=== PATIENT | male | born 1975 | race African-American/Black ===

== ENCOUNTER 2020-04-15 00:57 | Emergency (ER) | payer MEDICAID ==
[~2020-04-15] VITALS: Ht 190.5 cm; Wt 122.5 kg
[2020-04-15] VITALS (7 sets, daily range): BP systolic 122–142; BP diastolic 76–84
[2020-04-15] MEDS ORDERED: DiphenhydrAMINE 50mg/ml Inj ONE (01:07)
[2020-04-15] MEDS ORDERED: Haloperidol 5mg/ml Inj ONE (01:07)
[2020-04-15] MEDS ORDERED: LORazepam Inj 2mg/ml 1ml ONE (01:07)
[2020-04-15] MEDS ORDERED: DiphenhydrAMINE 50mg/ml Inj IM ONE (01:15)
[2020-04-15] MEDS ORDERED: Haloperidol 5mg/ml Inj IM ONE (01:15)
[2020-04-15] MEDS ORDERED: LORazepam Inj 2mg/ml 1ml IM ONE (01:15)
[2020-04-15 02:19] LABS: BASOPHILS % (AUTO) 3.4 % (0.0-2.0); EOSINOPHILS % (AUTO) 0.1 % (0.0-3.0); HEMATOCRIT 36.8 % (42.0-52.0); HEMOGLOBIN 12.4 G/DL (14.2-18.0); LYMPHOCYTES % (AUTO) 8.8 % (20.0-45.0); MEAN CORPUSCULAR VOLUME 89 FL (80-99); MONOCYTES % (AUTO) 8.8 % (1.0-10.0); NEUTROPHILS % (AUTO) 78.9 % (45.0-75.0); PLATELET COUNT 199 K/UL (150-450); RED BLOOD COUNT 4.13 M/UL (4.70-6.10); RED CELL DISTRIBUTION WIDTH 13.2 % (11.6-14.8); WHITE BLOOD COUNT 10.6 K/UL (4.8-10.8)
--- NOTE | 2020-04-15 02:35 | Emergency Room Report ---
History of Present Illness General Chief Complaint: Behavioral Complaint Source: Patient Present Illness HPI 44-year-old -[place] male brought in by PD on 5150 hold for suicidal ideation. According to PD, patient verbalized his desire to kill himself by running into traffic. Patient is uncooperative with examination. He is denying any previous psychiatric history, however he appears to be reacting with internal stimuli. He is severely agitated. He does not endorse any drug use or ingestion. Denies pain at this time. He is asking for a cup of water to drink The patient's symptoms were gradual onset, severity was moderate, duration since unknown amount of time. Quality: Psychotic Past medical history: Psychosis Past surgical history: Unable to obtain Smoking: Unable to obtain Alcohol use: Unable to obtain Drug use: Unable to obtain Review of systems: CONST: No fevers or chills, No night sweats PULMONARY: No productive cough, No shortness of breath CARDIAC: No chest pain, No palpitations GI: No vomiting, No diarrhea , No melena_or_BRBPR : No dysuria, No hematuria, No discharge NEURO: No new_focal_weakness_or_numbness, No confusion, No vision changes 14 point Review of Systems is otherwise negative except per HPI Physical Exam: GENERAL: Awake_alert_ nontoxic, no acute distress Spo2 98% on RA -normal EYES: Extraocular muscles are intact. Conjunctivae clear. Lids without swelling. No nystagmus. No signs of head trauma. ENT: External nose and ear normal_in_appearance. Oropharynx clear. Head_atraumatic, Moist_oral_mucosa NECK: No JVD. No meningismus. No thyromegaly. Supple. Trachea midline RESP: Normal respiratory effort. Symmetric rise. No stridor. Clear_to_auscultation_No_rales_No_wheezes CARDIAC: Tachycardic and regular rhytm. No_significant pedal edema. ABDOMEN: Soft. Nondistended. Nontender_No_rebound_or_guarding. MSK: Normal muscle tone, without rigidity. Extremities without asymmetric deformity or swelling. SKIN: Warm and dry. No visible cyanosis or pallor NEUROLOGIC: Alert, oriented x3. Motor_and_sensation_grossly_intact. No truncal ataxia. Gait_normal Psych: Positive suicidal ideation. Positive auditory and visual hallucination. - COORDINATION OF CARE Case was discussed with: Patient , Patient's Physician Any labs and imaging that were ordered were interpreted as part of the medical decision making: Medical Decision Making/Plan: Differential diagnosis includes severe depression, suicidal ideation, bipolar disorder, schizophrenia, drug abuse, drug overdose, among others. The patient endorses suicide attempt, overdose, or ingestion. They exhibit no signs of any toxic syndrome or drug / alcohol withdrawal. Labs were ordered and critical hypokalemia was identified. Potassium is 2.5. EKG shows no obvious signs of TCA overdose. The patient was observed for a period of time in the ED with serial neurologic exams. After serial neurologic exams in the emergency department, the patient remains clinically sober. They have no focal neurologic deficits and were able to ambulate with a steady gait without assistance. The patients presentation seems to be consistent with suicidal ideation, without any complications such as suicide attempt or overdose. ED intervention included K-dur, K rider, magnesium, and IV fluids. Repeat BMP is pending in order to be medically cleared. Care signed out to Dr Duvall @ 0600 Allergies: Coded Allergies: No Known Allergies (Unverified , 04/15/20) COVID-19 Screening Contact w/high risk pt: No Experienced COVID-19 symptoms?: No COVID-19 Testing performed INDUSTRIAL AUTOMATION ENGINEER: No Physical Exam Vital Signs Date Time Temp Pulse Resp B/P (MAP) Pulse Ox O2 Delivery O2 Flow Rate FiO2 04/15/20 00:57 98.8 110 22 142/78 (99) 98 Sp02 EP Interpretation: reviewed, normal Procedures Critical Care Time Critical Care Time Critical Care Statement Organ systems at risk include: Psychiatric, cardiac, circulatory Critical care performed for 45 minutes. Time is exclusive of separately billable procedures. Time includes: direct patient care, continuous monitoring and multiple patient reassessment, coordination of patient care, review of patient's medical records, medical consultation, family consultation regarding treatment decisions and documentation of patient care. Medical Decision Making Diagnostic Impression: Primary Impression: Suicidal ideation Additional Impression: Hypokalemia EKG Diagnostic Results ALONA Scribe Text 12-lead EKG (interpreted by me) Time: 0155 Indication: Rhythm analysis Tracing visualized and Interpreted by me. Rhythm: Normal sinus rhythm Rate: 95 bpm QTc: 467 Morphology: No_significant_ST_elevations_or_depressions, No STEMI Impression: Normal_sinus_rhythm_without_significant_abnormality, prolonged QT interval. T wave inversions in V3 through V6, and the inferior leads Rhythm Strip Diag. Results Rhythm Strip Time: 02:34 Rate: 95 Rhythm: NSR, no PVC's, no ectopy Reevaluation Time: 06:32 Last Vital Signs Date Time Temp Pulse Resp B/P (MAP) Pulse Ox O2 Delivery O2 Flow Rate FiO2 04/15/20 01:10 110 22 142/78 98 04/15/20 00:57 98.8 Status: improved Disposition: ADMITTED INPATIENT Admit Decision Time: 06:32 Condition: Stable Referrals: NOT CHOSEN IPA/,REFERRING (PCP) Antonina Crockett D.O. Apr 15, 2020 02:35
[2020-04-15 02:42] LABS: ALANINE AMINOTRANSFERASE 132 U/L (12-78); ALBUMIN 3.8 G/DL (3.4-5.0); ALBUMIN/GLOBULIN RATIO 1.1 (1.0-2.7); ALKALINE PHOSPHATASE 57 U/L (46-116); ANION GAP 13 mmol/L (5-15); ASPARTATE AMINO TRANSFERASE 118 U/L (15-37); BILIRUBIN,TOTAL 0.6 MG/DL (0.2-1.0); BLOOD UREA NITROGEN 13 mg/dL (7-18); CARBON DIOXIDE 24 MMOL/L (21-32); CHLORIDE 104 MMOL/L (98-107); CREATININE 1.3 MG/DL (0.55-1.30); SODIUM 141 MMOL/L (136-145)
[2020-04-15 02:43] LABS: POTASSIUM 2.5 MMOL/L (3.5-5.1)
[2020-04-15 09:06] LABS: ANION GAP 11 mmol/L (5-15); BLOOD UREA NITROGEN 11 mg/dL (7-18); CALCIUM 8.6 MG/DL (8.5-10.1); CARBON DIOXIDE 26 MMOL/L (21-32); CHLORIDE 105 MMOL/L (98-107); CREATININE 1.1 MG/DL (0.55-1.30); POTASSIUM 3.4 MMOL/L (3.5-5.1); SODIUM 142 MMOL/L (136-145)
[2020-04-15 10:33] LABS: APPEARANCE,URINE CLEAR; BILIRUBIN, URINE NEGATIVE (NEGATIVE); GLUCOSE, URINE (UA) NEGATIVE (NEGATIVE); KETONES,URINE 3+ (NEGATIVE); LEUKOCYTE ESTERASE ,URINE NEGATIVE (NEGATIVE); NITRITE,URINE NEGATIVE (NEGATIVE); PH,URINE 6 (4.5-8.0); PROTEIN,URINE 1+ (NEGATIVE); UROBILINOGEN,URINE 4 MG/DL (0.0-1.0)
[2020-04-15 10:34] LABS: COLOR,URINE YELLOW
--- NOTE | 2020-04-16 00:30 | Consultation ---
DATE OF CONSULTATION: 04/15/2020 This is a 44-year-old black male who was admitted on a 5150 for danger to self. Apparently, the patient has been intoxicated, walking into the traffic. The patient stated that he was tired and hungry and under influence. He told the alto singer that he is going to kill himself. The patient is from [place]. He is here in [place] and does not have a job, for 2 years. The patient has been in and out of the hospital. He is noncompliant with his medication. Does not believe he has a mental illness. The patient denies any suicide attempt. The patient is calm, has been eating food and resting since last night. PAST PSYCHIATRIC HISTORY: Denies psychiatric illness. Denies suicide attempt. Denies psychotropic medication. PAST MEDICAL HISTORY: None. ALLERGIES: No known drug allergies. SUBSTANCE ABUSE HISTORY: He admitted to [facility]; however, his system is positive for weed and cocaine as well as methamphetamine. MENTAL STATUS EXAMINATION: The patient is alert, oriented times self, place, situation, and date. Mood is neutral. Affect is full range, congruent with mood. Thought process is concrete. Thought content, there is no suicidal or homicidal ideation. Cognition is intact. Insight and judgment fair. ASSESSMENT: [place] I Polysubstance dependence. [place] II Deferred. [place] III None. [place] IV Low. [place] V 50 PLAN: 1. We will discontinue the 5150. 2. The patient is reluctant to take any psychotropic medication. 3. Provide the patient with reality orientation and supportive therapy. Emma Smith M.D. DR: MEHRAN JOB#: [id number] CC:
== END 2020-04-15 19:45 | disposition home or self-care (01) ==
LOC: EDBD 00:57 → EMR 01:58
DX: R45.851 Suicidal ideations (principal); E87.6 Hypokalemia
CPT/HCPCS: 36415; 80048; 80053; 80307; 81003; 84443; 85025; 93005; 96361; 96365; 96372; G0480; G0481; J1200; J1630; J3480; J7030; U0002; Z7502; 99291; J8499